=== PATIENT | male | born 1965 | race Caucasian/White ===

== ENCOUNTER 2017-12-21 13:36 | Emergency (ER) | payer OTHER, SELFPAY ==
[2017-12-21] MEDS ORDERED: PROPOFOL 20 ML ONE ×2 (15:01→15:18)
--- NOTE | 2017-12-21 16:27 | RAD ---
RIGHT SHOULDER TWO VIEWS: 12/21/17 HISTORY: History of right shoulder dislocation. This is labeled post reduction. AP and transthoracic scapular Y-view of the right shoulder performed. There is no evidence for disloc ation. There does appears to be a large Hill-Sachs osteochondral impaction injury of the humerus. Ma rked AC joint arthrosis changes are noted and the humeral head somewhat abuts the undersurface of the lateral acromion. IMPRESSION: Relocation of the right shoulder. Large Hill-Sachs osteochondral impaction injury. AC joint arthrosis . No acute fracture. POS: [facility]
--- NOTE | 2017-12-21 16:31 | CON ---
DATE OF CONSULTATION: 12/21/2017 REQUESTING PHYSICIAN: Yvette Israel MD. HISTORY OF PRESENT ILLNESS: The patient is a pleasant 52-year-old right hand dominant gentleman who reports that while sleeping prone early this morning, he rolled and his right shoulder dislocated. H e reports that this is the second or third dislocation for this shoulder. He presented to the emerge ncy room in [place] were 2 attempts were made at closed reduction; however, these were unsuccessful . As such, the patient now transferred to [facility] in [place] for either orthopedic consultation or reduction in the emergency room. Patient at this time reports significant pain in the shoulder, but denies numbness or tingling in the hand. PAST MEDICAL HISTORY: Remarkable for hypertension. PAST SURGICAL HISTORY: Includes bilateral knee replacement with Dr. Johansen as well as left rotator c uff repair with Dr. Jesus Langford. MEDICATIONS: Include hydrochlorothiazide and diltiazem. ALLERGIES: LISINOPRIL. FAMILY HISTORY: Noncontributory. SOCIAL HISTORY: Remarkable for a gentleman who does drink alcoholic beverages every day with approxi mately 6 beers per day. He denies recreational drug use. He does smoke cigarettes daily and has don e so for 10 years at 1 pack per day. REVIEW OF SYSTEMS: Denies recent fevers, chills or sweats. Denies chest pain or shortness of breath . Denies numbness or tingling of the upper extremities. PHYSICAL EXAMINATION: VITAL SIGNS: He is found to have a temperature of 99.2 degrees Fahrenheit, heart rate of 85, respira tory rate of 18, and a blood pressure 162/97. HEENT: Atraumatic, normocephalic. HEART: Shows a regular rate and rhythm without murmur. LUNGS: Clear to auscultation bilaterally. EXTREMITIES: Remarkable for bilateral lower extremities are atraumatic with well-healed midline ante rior knee incisions from his knee arthroplasty. A left shoulder with a superior lateral skin incisio n from prior shoulder surgery, he is found to have supple range of motion of this shoulder. Distal n eurovascular exam on the left upper extremity is intact. The right upper extremity is remarkable for a palpable anterior inferior shoulder dislocation. The arm is held in abduction, and internal rotat ion as a position of comfort. He is found to have an atraumatic elbow to palpation. Wrist and hand are also atraumatic. He has intact sensation over the radial, median, and ulnar distributions as wel l as over the axillary distribution. X-RAYS: Plain films from [facility] show an anterior inferior shoulder dislocation with impaction of the humeral head on the anterior inferior glenoid rim. PROCEDURE: Today, after discussion with patient including risks and benefits, we decided to proceed with a closed reduction of this shoulder dislocation under propofol sedation. Propofol sedation was provided by Dr. Rashid. Once the patient was sufficiently sedated, the arm was brought into longit udinal traction and brought into slight forward elevation of approximately 70 degrees and then with f urther gentle traction and slight internal rotation, a palpable and audible clunk could be appreciate d with subsequent reduction of the glenohumeral joint. Following this maneuver, the shoulder could b e brought into forward elevation to 150 degrees, abduction of 140 degrees without instability in the 90/90 position any type of external rotation resulted in some subluxation from the joint. ASSESSMENT: A 52-year-old gentleman with recurrent right anterior inferior shoulder dislocations now with successful closed reduction. PLAN: At this time, the patient was placed in a sling. We will have him follow up with Dr. Jesus arenas for reevaluation and further assessment of the shoulder given that he has demonstrated a repeat i nstability. The patient may well be a candidate for surgical stabilization. He appears comfortable with this discussion and plan.
== END 2017-12-21 16:09 | disposition home or self-care (01) ==
LOC: ERS 13:36
DX: S43.004A Unspecified dislocation of right shoulder joint, initial encounter (principal); I10 Essential (primary) hypertension; F17.210 Nicotine dependence, cigarettes, uncomplicated; X58.XXXA Exposure to other specified factors, initial encounter
CPT/HCPCS: 23650; 96360; 99156; J2704

== ENCOUNTER 2018-06-30 00:40 | Emergency (ER) | payer SELFPAY ==
[2018-06-30] MEDS ORDERED: Ketorolac Tromethamine 30 MG/ML VIAL ONE (04:04)
[2018-06-30] MEDS ORDERED: PROPOFOL 20 ML ONE (04:46)
--- NOTE | 2018-06-30 08:17 | RAD ---
TWO VIEWS RIGHT SHOULDER: DATE: 06/30/18. HISTORY: Post reduction. COMPARISON: 05/23/18. FINDINGS: There is evidence of an anterior right shoulder dislocation with the humeral head dislocated anterior ly, inferiorly, and medially with respect to the glenoid. There is prominent right acromioclavicular joint osteoarthritis also noted on the prior exam. No other interval change. No fracture is seen. IMPRESSION: Right anterior shoulder dislocation. POS: [facility]
--- NOTE | 2018-06-30 09:19 | RAD ---
TWO VIEWS OF RIGHT SHOULDER: DATE: 06/30/18. HISTORY: Right shoulder injury. Post reduction. COMPARISON: 06/30/18 at 0228 hours. FINDINGS: There has been interval reduction in a previously noted right anterior shoulder dislocation. No disl ocation is present on this exam and no obvious fracture is appreciated. Right acromioclavicular join t osteoarthritis is present. IMPRESSION: Interval reduction in previously noted right anterior shoulder dislocation. No definite fracture is visualized. POS: [facility]
== END 2018-06-30 07:14 | disposition home or self-care (01) ==
LOC: ERS 00:40
DX: S43.004D Unspecified dislocation of right shoulder joint, subsequent encounter (principal); I10 Essential (primary) hypertension; F17.210 Nicotine dependence, cigarettes, uncomplicated; X58.XXXD Exposure to other specified factors, subsequent encounter
CPT/HCPCS: 23650; 96374; 99152; 99406; J1885; J2704